=== PATIENT | male | born 1995 | race Caucasian/White ===

== ENCOUNTER 2018-07-24 19:35 | Emergency (ER) | payer SELFPAY, OTHER ==
[2018-07-24 23:08] LABS: URINE BLOOD (Dip) POC Negative (NEGATIVE); URINE GLUCOSE (Dip) POC Negative (NEGATIVE); URINE KETONES (Dip) POC Negative (NEGATIVE); URINE LEUKOCYTE EST (Dip) POC Negative (NEGATIVE); URINE NITRITE (Dip) POC Negative (NEGATIVE); URINE TOTAL PROTEIN POC Negative (NEGATIVE)
[2018-07-24] MEDS: LIDOCAINE 1% (MPF) 5 ML VIAL INFIL (23:11)
[2018-07-24] MEDS: AZITHROMYCIN 250 MG TAB PO (23:11)
[2018-07-24] MEDS: CEFTRIAXONE 250 MG INJ IM (23:11)
[2018-07-25 00:31] LABS: HIV 1&2 ANTIBODY NEGATIVE (NEGATIVE)
[2018-07-25 22:53] LABS: RAPID PLASMA REAGIN NONREACTIVE (NR)
== END 2018-07-25 00:53 | disposition home or self-care (01) ==
LOC: FTE 07-25 00:53
DX: Z20.2 Contact with and (suspected) exposure to infections with a predominantly sexual mode of transmission (principal)
CPT/HCPCS: 36415; 81003; 86592; 86703; 87591; 96372; 99284-25

== ENCOUNTER 2018-11-16 19:48 | Emergency (ER) | payer SELFPAY | END 2018-11-16 21:51 | disposition home or self-care (01) | LOC: FTE 21:51 | DX: H10.32 Unspecified acute conjunctivitis, left eye (principal); Z87.891 Personal history of nicotine dependence | CPT/HCPCS: 99283 ==

== ENCOUNTER 2019-03-12 00:44 | Emergency (ER) | payer MEDICAID ==
[2019-03-12 02:47] LABS: HIV 1&2 ANTIBODY NEGATIVE (NEGATIVE)
== END 2019-03-12 01:59 | disposition home or self-care (01) ==
LOC: FTE 01:59
DX: Z01.812 Encounter for preprocedural laboratory examination (principal)
CPT/HCPCS: 86703; 87591; 99283